=== PATIENT | male | born 1960 | race Caucasian/White ===

== ENCOUNTER 2017-02-02 06:30 | Outpatient (CLI) ==
[2013-01-22 10:59] VITALS: BMI 5780.2
--- NOTE | 2017-02-02 12:41 | ECHOSTRESS ---
Date of Exam: 02/02/17 Ordering Physician: LISA MCBRIDE Reason for Echo: CHEST PAIN, STRESS TEST--NO ISCHEMIA M-Mode Normal Adult Results LV Dimensions Normal Adult Results AoV Opening excursions >1.6 LVEDD-base- 3.5-5.8 Ao root dimensions 2.0-3.7 LVESD-base- 3.1-4.6 L. Atrium dimensions 1.9-3.8 Post. Wall thickness 0.8-1.1 IV septum (thickness) 0.7-1.2 Post. Wall excursion 0.72-1.3 Septal motion Systolic motion R. Ventricular cavity 1.5-2.0 LVEF 60% Paradoxical septal wall motion 2-D: NORMAL LEFT VENTRICULAR CONTRACTILITY--RESTING AND POST EXERCISE M-MODE: MV: AV: TV: PV: CHAMBER SIZE: WALL MOTION: NORMAL LEFT VENTRICULAR CONTRACTILITY--RESTING AND POST EXERCISE PERICARDIUM: INTERPRETATION: 1. NORMAL LEFT VENTRICULAR CONTRACTILITY--RESTING AND POST EXERCISE MTDD
--- NOTE | 2017-02-02 13:28 | STRESSECHO ---
Date of Test: 02/02/17 Reason for Exam: CHEST PAIN, DIAPHORESIS Ordering Physician: LISA MCBRIDE Current Medications: SYNTHROID, METFORMIN Resting EKG: SINUS RHYTHM/ NO ACUTE CHANGES Target Heart Rate: 140/165 STAGE MPH/GRADE HEART RATE BPM BLOOD PRESSURE mmhg RHYTHM S-T SEGMENT +/- UP DOWN SYMPTOMS,COMMENTS At Rest 72 142/90 SR X NONE 1 1.7/10% 118 150/95 SR X NONE 2 2.5/12% 130 165/102 SR X NONE 3 3.4/14% 4 4.2/16% 5 5.0/18% Immediately after 141 SR X LEG CRAMPS Durations of Exercise: 6:08 Maximum Heart Rate Reached: 141Reason for Termination: LEG CRAMPS 2 MINUTES POST EXERCISE: HR 86 BPM, BP 158/90 MMHG, SR, +/- INTERPRETATION: 98% OXYGEN SATURATION WITH EXERCISE ON ROOM AIR METS 7.4 1. NO EVIDENCE OF ISCHEMIA BY ST-T WAVE 2. NO CHEST PAIN OR DISCOMFORT 3. NO ARRHYTHMIAS 4. BLOOD PRESSURE RESPONSE: HYPERTENSION-- RESTING AND DURING EXERCISE NORMAL LEFT VENTRICULAR CONTRACTILITY BY ECHO--RESTING AND POST EXERCISE MTDD
== END 2017-02-02 06:31 | disposition home or self-care (01) ==
LOC: CAR 06:30
PROVIDERS: ATTEND Family Medicine
DX: R61 Generalized hyperhidrosis (principal); R07.9 Chest pain, unspecified; R06.00 Dyspnea, unspecified